=== PATIENT | male | born 1995 | race Caucasian/White ===

== ENCOUNTER 2023-09-21 09:41 | Emergency (ER) | payer MEDICAID, OTHER ==
[~2023-09-21] VITALS: Ht 182.9 cm; Wt 72.6 kg
[2023-09-21] MEDS ORDERED: ACETAMINOPHEN 500 MG TABLET ONE (10:47)
[2023-09-21] MEDS ORDERED: KETOROLAC TROMETHAMINE 30 MG INJ ONE (10:47)
[2023-09-21] MEDS: KETOROLAC TROMETHAMINE 30 MG INJ IVP ONE (10:53)
[2023-09-21] MEDS: ACETAMINOPHEN 500 MG TABLET PO ONE (10:53)
[2023-09-21 12:02] VITALS: BP 129/81; O2SAT 97
== END 2023-09-21 12:03 | disposition home or self-care (01) ==
LOC: ER 09:41
DX: S60.511A Abrasion of right hand, initial encounter (principal); R51.9 Headache, unspecified; Z60.2 Problems related to living alone; V03.99XA Pedestrian with other conveyance injured in collision with car, pick-up truck or van, unspecified whether traffic or nontraffic accident, initial encounter; Y93.89 Activity, other specified; Y92.89 Other specified places as the place of occurrence of the external cause; Y99.8 Other external cause status
CPT/HCPCS: 70450; 71045; 72125; 72170; 73020; 73120; A4606; A4663; A9150; J1885